=== PATIENT | female | born 1995 | race African-American/Black ===

== ENCOUNTER 2020-01-28 12:36 | Emergency (ER) | payer MEDICAID, OTHER ==
[~2020-01-28] VITALS: Ht 170.2 cm; Wt 65.8 kg
[2020-01-28 12:48] VITALS: BP 108/70
--- NOTE | 2020-01-28 13:28 | Emergency Room Report ---
History of Present Illness General Chief Complaint: Toothache Source: Patient Present Illness HPI 24 YO Female presents to the ED c/o 06/05 in severity left sided lower tooth pain with gum swelling and purulent d/c s/p self manipulation by needle. Pt. reports having tooth broken at the gumline and had dental infection 1 month ago and was seen by ED as well as dentist. pt. received PCN which did not work, then amoxicillin by dentis which did. She reports her symptoms have returned. Pt. reports she was recommended by Dentist for extraction but that was in [place]. Pt. reports she has Dental appt. in 7 days. Pt. denies fevers or chills. She denies swollen tender lymph nodes. She denies trauma. She denies significant PmHx. No other aggravating or relieving factors at this time. She denies or suspicion of . 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 Patient History Past Medical History: see triage record Past Surgical History: none Pertinent Family History: none, unable to obtain Last Menstrual Period: 01/13/20 Now: No Reviewed Nursing Documentation: PMH: Agreed; PSxH: Agreed Nursing Documentation-PMH Past Medical History: No Stated History Review of Systems All Other Systems: negative except mentioned in HPI Physical Exam Vital Signs Date Time Temp Pulse Resp B/P (MAP) Pulse Ox O2 Delivery O2 Flow Rate FiO2 01/28/20 12:40 98.8 88 18 108/70 (83) 100 Room Air Sp02 EP Interpretation: reviewed, normal General Appearance: no apparent distress, alert, GCS 15, non-toxic Head: normocephalic, atraumatic Eyes: bilateral eye normal inspection, bilateral eye PERRL ENT: hearing grossly normal, normal voice, other - Gingival abscess and compromised tooth no. 20 broken at the gumline- purulent drainage noted to be draining freely. minimal to no swelling/palpable fluctuance. No bleeding at this time, just purulent d/c. Neck: full range of motion Respiratory: lungs clear, normal breath sounds, speaking full sentences Cardiovascular #1: regular rate, rhythm Musculoskeletal: normal range of motion, gait/station normal, non-tender Neurologic: alert, motor strength/tone normal, oriented x3, sensory intact, responsive, speech normal Psychiatric: judgement/insight normal Skin: normal color Medical Decision Making PA Attestation Dr. Arrington is my supervising Physician whom patient management has been discussed with. Diagnostic Impression: Primary Impression: Gingival abscess ER Course 24 YO Female presents to the ED c/o 06/05 in severity left sided lower tooth pain with gum swelling and purulent d/c s/p self manipulation by needle. Pt. reports having tooth broken at the gumline and had dental infection 1 month ago and was seen by ED as well as dentist. pt. received PCN which did not work, then amoxicillin by dentis which did. She reports her symptoms have returned. Pt. reports she was recommended by Dentist for extraction but that was in [place]. Pt. reports she has Dental appt. in 7 days. Pt. denies fevers or chills. She denies swollen tender lymph nodes. She denies trauma. She denies significant PmHx. No other aggravating or relieving factors at this time. She denies or suspicion of . Ddx considered but are not limited to cellulitis, dental abscess, orbital cellulitis, d/l tooth, dental pain. trigeminal neuralgia Vital signs: are WNL, pt. is afebrile H&PE are most consistent with Gingival abscess and compromised tooth no. 20 broken at the gumline- purulent drainage noted to be draining freely. minimal to no swelling/palpable fluctuance. No bleeding at this time, just purulent d/ c. ORDERS: none required at this time, the diagnosis is clinical ED INTERVENTIONS: None required at this time. Draining freely. minimal gumline swelling or palpable fluctuance. d/w pt. need for Dental follow up within 3-5 days. Pt. given ED return precautions. -I do not identify an emergent condition at this time. With current presentation , pt. is stable for close outpatient follow up and conservative treatment. D/ w pt. to return promptly to ED with worsening or new symptoms.- Pt. verbalizes' understanding and agreement with proposed treatment plan. DISCHARGE: At this time pt. is stable for d/c to home. Will provide printed patient care instructions, and any necessary prescriptions. Care plan and follow up instructions have been discussed with the patient prior to discharge. Last Vital Signs Date Time Temp Pulse Resp B/P (MAP) Pulse Ox O2 Delivery O2 Flow Rate FiO2 01/28/20 12:48 98.8 65 18 108/70 100 Room Air Disposition: HOME, SELF-CARE Condition: Stable Scripts Ibuprofen* (MOTRIN*) 600 Mg Tablet 600 MG ORAL THREE TIMES A DAY, #20 TAB Prov: Sommer Matta 01/28/20 Acetaminophen With Codeine (T#3) (TYLENOL #3 TAB*) Y Tab 1 TAB ORAL Q6H PRN for For Pain, #12 TAB Prov: Sommer Matta 01/28/20 Chlorhexidine Gluconate (CHLORHEXIDINE GLUCONATE) 473 Ml Mouthwash 15 ML MM TID, #473 ML Prov: Sommer Matta 01/28/20 Amoxicillin/Potassium Clav 875-125 Mg Tab* (AMOX TR-K CLV 875-125 MG TAB*) 1 Each Tablet 1 TAB ORAL EVERY 12 HOURS for 10 Days, #20 TAB Prov: Sommer Matta 01/28/20 Referrals: [facility],REFERRING (PCP) Patient Instructions: Dental Pain Additional Instructions: Take medications as directed. Follow up with a Dentist in 3-5 days, even if your symptoms have resolved. * * --Please review list of Dental clinics, if you do not already have a Dentist Return sooner to ED if new symptoms occur, or current symptoms become worse. Do not drink alcohol, drive, or operate heavy machinery while taking Tylenol # 3 as this may cause drowsiness. - Please note that this Emergency Department Report was dictated using [employer] glass grinder technology software, occasionally this can lead to erroneous entry secondary to interpretation by the dictation equipment. Sommer Matta Jan 28, 2020 13:28
[2020-01-28] MEDS ORDERED: IBUPROFEN600 M1 ORAL (13:30)
[2020-01-28] MEDS ORDERED: CHLORHEXIDINE473 ML MM (13:30)
[2020-01-28] MEDS ORDERED: AMOX TR-K CLV1 EAC2 ORAL (13:30)
[2020-01-28] MEDS ORDERED: ACETAMINOPHEN-1 EAC1 ORAL (13:30)
[2020-01-28 13:55] VITALS: BP 108/70
== END 2020-01-28 14:04 | disposition home or self-care (01) ==
LOC: EMR 12:54
DX: K05.319 Chronic periodontitis, localized, unspecified severity (principal)
CPT/HCPCS: 99282